=== PATIENT | female | born 1990 | race Caucasian/White ===

== ENCOUNTER → 2020-07-12 | Outpatient (CLI) | payer OTHER ==
[~2020-07-12] MED LIST: CRAN1TAB5 PO; LORA-439 PO; POTASSIUM PO; TRAZ50TA66 PO
[2020-07-12 09:13] LABS: BASOPHILS % (AUTO) 1 % (0-1); EOSINOPHILS % (AUTO) 2 % (1-7); LYMPHOCYTES % (AUTO) 27 % (22-44); MEAN PLATELET VOLUME 7.4 fL (7.4-10.4); MONOCYTES % (AUTO) 10 % (2-9); NEUTROPHILS % (AUTO) 62 % (42-75); PLATELET COUNT 403 x10^3/uL (130-400); RED BLOOD COUNT 4.79 x10^6/uL (3.82-5.3); RED CELL DISTRIBUTION WIDTH 13.6 % (9.6-15.2)
[2020-07-12 09:14] LABS: MD NO
[2020-07-12 09:21] LABS: ALBUMIN 4.2 g/dL (3.4-5.0); ANION GAP 7 mmol/L (5-15); CALCIUM 9.6 mg/dL (8.5-10.1); CHLORIDE 107 mmol/L (98-107)
[2020-07-12 09:27] LABS: ALANINE AMINOTRANSFERASE 18 U/L (12-78); ALKALINE PHOSPHATASE 69 U/L (45-117); BILIRUBIN,TOTAL 0.8 mg/dL (0.2-1.0); CREATININE 0.95 mg/dL (0.55-1.02); TOTAL PROTEIN 7.5 g/dL (6.4-8.2)
[2020-07-12 09:51] LABS: MICROSCOPIC INDICATED
== END | disposition home or self-care (01) ==
LOC: STAR 08:04
PROVIDERS: ATTEND Obstetrics & Gynecology Gynecology
DX: Z01.812 Encounter for preprocedural laboratory examination (principal); Z20.828 Contact with and (suspected) exposure to other viral communicable diseases; N94.6 Dysmenorrhea, unspecified; N94.10 Unspecified dyspareunia; R10.2 Pelvic and perineal pain
CPT/HCPCS: 36415; 80053; 81001; 84703; 85025; 87086; 87635

== ENCOUNTER 2020-07-17 08:26 | Day surgery (SDC) | payer OTHER ==
[~2020-07-17] VITALS: Ht 165.1 cm; Wt 69.0 kg
[2020-07-17] MEDS ORDERED: CHLORHEXIDINE 15 ML UDC MM STA (09:15)
[2020-07-17] MEDS ORDERED: LACTATED RINGERS 1,000 ML IV SCH (09:15)
[2020-07-17 09:33] LABS: HCG UR SG 1.025 (1.003-1.030)
[2020-07-17] MEDS ORDERED: BUPIVACAINE/PF 0.5% ONE (10:21)
[2020-07-17] MEDS ORDERED: EPINEPHRINE 1 MG/ML, 1ML ONE (10:21)
[2020-07-17] MEDS ORDERED: MIDAZOLAM 1 MG/ML, 2ML ONE (10:32)
[2020-07-17] MEDS ORDERED: FENTANYL PF 100 MCG/2ML ONE ×2 (10:32→11:58)
[2020-07-17] MEDS ORDERED: DEXAMETHASONE 4 MG/ML, 1ML ONE ×2 (10:35)
[2020-07-17] MEDS ORDERED: ONDANSETRON 2MG/ML, 2ML ONE ×2 (10:35)
[2020-07-17] MEDS ORDERED: PROPOFOL 10 MG/ML, 20ML ONE ×2 (10:35)
[2020-07-17] MEDS ORDERED: KETOROLAC 30 MG/1 ML ONE ×2 (10:35)
[2020-07-17] MEDS ORDERED: ROCURONIUM 10 MG/ML,10ML ONE ×2 (10:35)
[2020-07-17] MEDS ORDERED: LIDOCAINE 2%, 20ML ONE ×2 (10:35)
[2020-07-17] MEDS ORDERED: HYDROmorphone 1 MG/ML, 1ML INJ IVPush PRN (11:30)
[2020-07-17] MEDS ORDERED: DIPHENHYDRAMINE 50 MG/ML, 1ML IVPush PRN (11:30)
[2020-07-17] MEDS ORDERED: DIAZEPAM 5 MG/ML, 2ML IVPush PRN (11:30)
[2020-07-17] MEDS ORDERED: ONDANSETRON 2MG/ML, 2ML IVPush PRN (11:30)
[2020-07-17] MEDS ORDERED: ACETAMINOPHEN 325 MG TABLET PO PRN (11:30)
[2020-07-17] MEDS ORDERED: OXYcodone 5 MG/5 ML ORAL.SOL UDC PO PRN (11:30)
[2020-07-17] MEDS ORDERED: MEPERIDINE/PF 25MG/0.5ML IVPush PRN (11:30)
[2020-07-17] MEDS ORDERED: PROMETHAZINE 25 MG/ML, 1ML IVPush PRN (11:30)
[2020-07-17] MEDS ORDERED: OXYcodone 5 MG/5 ML ORAL.SOL UDC ONE (11:58)
[2020-07-17] MEDS: FENTANYL PF 100 MCG/2ML IV PRN ×2 (12:02→12:11)
[2020-07-17] MEDS ORDERED: ACETAMINOPHEN 650 MG/20.3 ML UDC ONE (12:09)
[2020-07-17] MEDS ORDERED: MEPERIDINE/PF 25MG/ML,1ML ONE (12:21)
== END 2020-07-17 14:05 | disposition home or self-care (01) ==
LOC: OUT 08:26
PROVIDERS: ATTEND Obstetrics & Gynecology Gynecology
DX: N94.6 Dysmenorrhea, unspecified (principal); N94.19 Other specified dyspareunia; G43.909 Migraine, unspecified, not intractable, without status migrainosus; Z91.048 Other nonmedicinal substance allergy status; Z91.013 Allergy to seafood; Z91.018 Allergy to other foods; Z72.89 Other problems related to lifestyle; Z79.899 Other long term (current) drug therapy
CPT/HCPCS: 44180; 58555; 81025; J1100; J1885; J2175; J2250; J2405; J2704; J3010; J7120; J0171